=== PATIENT | male | born 1965 | race Caucasian/White ===

== ENCOUNTER 2019-09-05 09:44 | Emergency (ER) | payer SELFPAY ==
[~2019-09-05] VITALS: Ht 172.7 cm; Wt 100.0 kg
[~2019-09-05 09:44] MED LIST: AMOXICILLIN/PO500 MG PO; ROBITUSSIN AC10 ML PO
[2019-09-05 10:48] LABS: HEMATOCRIT 50.4 % (39.0-50.0); HEMOGLOBIN 16.2 g/dl (14.0-18.0); IMMATURE GRANULOCYTES 0.5 % (0.0-5.0); MEAN CELL VOLUME 98.4 fL CALC (80.0-100.0); MEAN CORPUSCULAR HGB 31.6 pG CALC (26.0-32.0); MEAN CORPUSCULAR HGB CONC 32.1 g/dL CAL (32.0-36.0); NEUT# 6.74 thou/uL (1.82-7.42); RED BLOOD COUNT 5.12 mill/uL (4.70-6.10); RED CELL DISTRI WIDTH 13.7 % (11.5-15.5)
[2019-09-05 11:15] LABS: ALBUMIN 4.4 g/dL (3.2-5.0); ALKALINE PHOSPHATASE 139 u/l (38-126); ANION GAP 10 (6-22 (CALC)); BUN 16 mg/dL (9-20); BUN/CREATININE RATIO 16 (12-20 (CALC)); C-REACTIVE PROTEIN 2.7 mg/dL (0-0.9); CARBON DIOXIDE 27 mmol/l (22-30); CHLORIDE 102 mmol/l (95-108); GFR > 60 ML/MIN (>=60 (CALC)); GFR FOR AFR.AMER. > 60 ML/MIN (>=60 (CALC)); LIPASE 59 u/l (23-300); POTASSIUM 4.3 mmol/l (3.5-5.1); SODIUM 136 mmol/l (137-146); TOTAL PROTEIN 7.4 g/dL (6.3-8.2)
[2019-09-05 11:16] LABS: BILIRUBIN, TOTAL 1.6 mg/dL (0.0-1.4); SGOT/AST 51 u/l (17-59)
[2019-09-05] MEDS ORDERED: ZPAK PO (13:25)
[2019-09-05 13:35] VITALS: BP 122/81
== END 2019-09-05 13:35 | disposition home or self-care (01) | DRG 204 ==
LOC: ED 09:44
PROVIDERS: Family Medicine
DX: R06.02 Shortness of breath (principal); R50.9 Fever, unspecified; R52 Pain, unspecified; R10.9 Unspecified abdominal pain; F17.200 Nicotine dependence, unspecified, uncomplicated; Z20.828 Contact with and (suspected) exposure to other viral communicable diseases
CPT/HCPCS: Q9967

== ENCOUNTER 2021-03-24 12:28 | Emergency (ER) | payer SELFPAY ==
[2021-03-24] VITALS (9 sets, daily range): BP systolic 108–137; BP diastolic 68–85
[~2021-03-24] VITALS: Ht 172.7 cm; Wt 101.0 kg
[~2021-03-24 12:28] MED LIST changes: +ZPAK PO
[2021-03-24 14:08] LABS: HEMATOCRIT 50.2 % (39.0-50.0); HEMOGLOBIN 16.2 g/dl (14.0-18.0); IMMATURE GRANULOCYTES 0.3 % (0.0-5.0); MEAN CELL VOLUME 99.2 fL CALC (80.0-100.0); MEAN CORPUSCULAR HGB CONC 32.3 g/dL CAL (32.0-36.0); NEUT# 5.31 thou/uL (1.82-7.42); RED BLOOD COUNT 5.06 mill/uL (4.70-6.10); RED CELL DISTRI WIDTH 13.2 % (11.5-15.5)
[2021-03-24 14:13] LABS: AMYLASE 94 u/l (30-110); ANION GAP 15 (6-22 (CALC)); BUN 9 mg/dL (9-20); BUN/CREATININE RATIO 10 (12-20 (CALC)); CARBON DIOXIDE 24 mmol/l (22-30); CHLORIDE 105 mmol/l (95-108); CREATININE 0.9 mg/dL (0.7-1.3); GFR > 60 ML/MIN (>=60 (CALC)); GFR FOR AFR.AMER. > 60 ML/MIN (>=60 (CALC)); LIPASE 132 u/l (23-300); POTASSIUM 4.1 mmol/l (3.5-5.1); SODIUM 139 mmol/l (137-146); TOTAL PROTEIN 7.8 g/dL (6.3-8.2)
[2021-03-24 14:25] LABS: MYOGLOBIN 50 ng/mL (0 - 121)
[2021-03-24 14:32] LABS: ALKALINE PHOSPHATASE 361 u/l (38-126); SGOT/AST 220 u/l (17-59)
[2021-03-24 16:23] LABS: URINE BLOOD DIPSTICK NEGATIVE (NEGATIVE); URINE GLUCOSE - DIPSTICK NEGATIVE (NEGATIVE); URINE KETONE TRACE mg/dL (NEGATIVE); URINE LEUK ESTERASE NEGATIVE (NEGATIVE); URINE PH 5.5 (4.5-8.0); URINE PROTEIN - DIPSTICK NEGATIVE (NEG-TRACE); URINE SPECIFIC GRAVITY 1.025
[2021-03-24 16:32] LABS: URINE BILIRUBIN - DIPSTICK MODERATE (NEGATIVE); URINE COLOR AMBER; URINE NITRITE - DIPSTICK NEGATIVE (Negative)
[2021-03-24] MEDS ORDERED: ZOFRAN4 MG/TAB PO (18:27)
[2021-03-24 19:43] LABS: ETHYL ALCOHOL 0 mg/dl (0-30)
== END 2021-03-24 21:00 | disposition left against medical advice (07) | DRG 948 ==
LOC: ED 12:28
PROVIDERS: Emergency Medicine
DX: R74.8 Abnormal levels of other serum enzymes (principal); K52.9 Noninfective gastroenteritis and colitis, unspecified; J44.9 Chronic obstructive pulmonary disease, unspecified; F17.210 Nicotine dependence, cigarettes, uncomplicated; Z20.822 Contact with and (suspected) exposure to COVID-19; Z91.19 Patient's noncompliance with other medical treatment and regimen
CPT/HCPCS: Q9967

== ENCOUNTER 2021-05-13 21:34 | Emergency (ER) | payer SELFPAY ==
[~2021-05-13 21:34] MED LIST changes: +ZOFRAN4 MG/TAB PO
== END 2021-05-13 23:50 | disposition left against medical advice (07) | DRG 951 ==
LOC: ED 21:34 → LWOBS 23:48
DX: Z53.21 Procedure and treatment not carried out due to patient leaving prior to being seen by health care provider (principal)

== ENCOUNTER 2021-11-08 11:56 | Emergency (ER) | payer SELFPAY ==
[~2021-11-08] VITALS: Ht 172.7 cm; Wt 84.0 kg
[2021-11-08 12:51] LABS: IMMATURE GRANULOCYTES 0.3 % (0.0-5.0); MEAN CORPUSCULAR HGB 31.4 pG CALC (26.0-32.0); NEUT# 17.45 thou/uL (1.82-7.42); RED BLOOD COUNT 4.33 mill/uL (4.70-6.10)
[2021-11-08 12:58] LABS: HEMOGLOBIN 13.6 g/dl (14.0-18.0); MEAN CELL VOLUME 92.4 fL CALC (80.0-100.0)
[2021-11-08 12:59] LABS: ALBUMIN 4.1 g/dL (3.2-5.0); ANION GAP 21 (6-22 (CALC)); BILIRUBIN, TOTAL 5.5 mg/dL (0.0-1.4); BUN 9 mg/dL (9-20); BUN/CREATININE RATIO 15 (12-20 (CALC)); CARBON DIOXIDE 21 mmol/l (22-30); CHLORIDE 99 mmol/l (95-108); CREATININE 0.6 mg/dL (0.7-1.3); GFR FOR AFR.AMER. > 60 ML/MIN (>=60 (CALC)); GFR OTHER RACES > 60 ML/MIN (>=60 (CALC)); LIPASE 135 u/l (23-300); POTASSIUM 3.7 mmol/l (3.5-5.1); SGOT/AST 204 u/l (17-59); SODIUM 137 mmol/l (137-146); TOTAL PROTEIN 7.4 g/dL (6.3-8.2)
[2021-11-08 13:15] LABS: ALKALINE PHOSPHATASE > 1500 u/l (38-126)
[2021-11-08 13:47] LABS: INTERNATIONAL NORMALIZED RATIO 1.1 RATIO (0.7-1.3); PROTHROMBIN TIME 11.1 SECONDS (9.0-12.5)
[2021-11-08 15:17] VITALS: BP 17/64
--- NOTE | 2021-11-11 15:54 | NUR ---
FINAL BLOOD CULTURE RESULTS FAXED TO [facility] [phone] - WAS UNABLE TO GET IN CONTACT WITH SOMEONE AT THE NURSES STATION, THIS IS SAME NUMBER WE FAXED PRELIM RESULTS TO YESTERDAY
== END 2021-11-08 15:40 | disposition short-term general hospital (02) | DRG 443 ==
LOC: ED 11:56
PROVIDERS: Family Medicine
DX: E80.6 Other disorders of bilirubin metabolism (principal); K83.8 Other specified diseases of biliary tract; E11.9 Type 2 diabetes mellitus without complications; J44.9 Chronic obstructive pulmonary disease, unspecified; F17.200 Nicotine dependence, unspecified, uncomplicated; Z96.89 Presence of other specified functional implants
CPT/HCPCS: Q9967

== ENCOUNTER 2022-03-23 15:32 | Emergency (ER) | payer SELFPAY ==
[~2022-03-23] VITALS: Ht 172.7 cm; Wt 68.0 kg
[2022-03-23] VITALS (37 sets, daily range): BP systolic 82–136; BP diastolic 54–76
[2022-03-23] MEDS ORDERED: METFORMIN HCL500 M1 PO (16:11)
[2022-03-23] MEDS ORDERED: DICYCLOMINE HCL20 MG PO (16:12)
[2022-03-23] MEDS ORDERED: PROVENTIL0.083 % IN (16:13)
[2022-03-23] MEDS ORDERED: OMEPRAZOLE20 M4 (16:13)
[2022-03-23] MEDS ORDERED: SUCRALFATE1 GM PO (16:14)
[2022-03-23 16:30] LABS: BASO% 0.1 % (0-3); EOS% 0.4 % (0-8); HEMATOCRIT 38.5 % (39.0-50.0); HEMOGLOBIN 12.7 g/dl (14.0-18.0); IMMATURE GRANULOCYTES 0.4 % (0.0-5.0); MEAN CELL VOLUME 91.9 fL CALC (80.0-100.0); MEAN CORPUSCULAR HGB 30.3 pG CALC (26.0-32.0); MONO% 10.4 % (2-13); NEUT# 11.39 thou/uL (1.82-7.42); NEUT% 80.7 % (42-76); RED BLOOD COUNT 4.19 mill/uL (4.70-6.10); RED CELL DISTRI WIDTH 13.3 % (11.5-15.5)
[2022-03-23 16:37] LABS: ALBUMIN 3.7 g/dL (3.2-5.0); ANION GAP 12 (6-22 (CALC)); BUN 9 mg/dL (9-20); BUN/CREATININE RATIO 16 (12-20 (CALC)); CARBON DIOXIDE 23 mmol/l (22-30); CHLORIDE 102 mmol/l (95-108); CREATININE 0.6 mg/dL (0.7-1.3); GFR FOR AFR.AMER. > 60 ML/MIN (>=60 (CALC)); GFR OTHER RACES > 60 ML/MIN (>=60 (CALC)); LIPASE 96 u/l (23-300); SGOT/AST 87 u/l (17-59); SODIUM 134 mmol/l (137-146); TOTAL PROTEIN 7.5 g/dL (6.3-8.2)
[2022-03-23 16:44] LABS: ALKALINE PHOSPHATASE 1387 u/l (38-126); BILIRUBIN, TOTAL 10.6 mg/dL (0.2-1.3)
[2022-03-23 21:49] LABS: URINE BLOOD DIPSTICK NEGATIVE (NEGATIVE); URINE COLOR BROWN; URINE GLUCOSE - DIPSTICK 100 mg/dL (NEGATIVE); URINE KETONE TRACE mg/dL (NEGATIVE); URINE LEUK ESTERASE NEGATIVE (NEGATIVE); URINE PH 6.5 (4.5-8.0); URINE PROTEIN - DIPSTICK 30 mg/dL (NEG-TRACE); URINE SPECIFIC GRAVITY 1.015
[2022-03-23 21:50] LABS: URINE BILIRUBIN - DIPSTICK LARGE (NEGATIVE); URINE NITRITE - DIPSTICK NEGATIVE (Negative)
[2022-03-23 21:54] LABS: URINE RBC 0-2 RBC/hpf (0-5); URINE WBC 0-2 WBC/hpf (0-5)
== END 2022-03-23 23:39 | disposition short-term general hospital (02) | DRG 445 ==
LOC: ED 15:32
PROVIDERS: Family Medicine
DX: K83.09 Other cholangitis (principal); K81.0 Acute cholecystitis; J44.9 Chronic obstructive pulmonary disease, unspecified; Z72.0 Tobacco use; E11.9 Type 2 diabetes mellitus without complications
CPT/HCPCS: Q9967

== ENCOUNTER 2022-07-16 13:14 | Emergency (ER) | payer OTHER ==
[~2022-07-16] VITALS: Ht 172.7 cm; Wt 74.8 kg
[2022-07-16] VITALS (7 sets, daily range): BP systolic 92–113; BP diastolic 58–78
[~2022-07-16 13:14] MED LIST changes: +DICYCLOMINE HCL20 MG PO; +METFORMIN HCL500 M1 PO; +OMEPRAZOLE20 M4; +PROVENTIL0.083 % IN; +SUCRALFATE1 GM PO
[2022-07-16 14:59] LABS: BASO% 0.3 % (0-3); EOS% 2.9 % (0-8); HEMATOCRIT 36.9 % (39.0-50.0); HEMOGLOBIN 11.8 g/dl (14.0-18.0); IMMATURE GRANULOCYTES 0.1 % (0.0-5.0); LYMPH% 27.9 % (15-41); MEAN CELL VOLUME 93.4 fL CALC (80.0-100.0); MEAN CORPUSCULAR HGB 29.9 pG CALC (26.0-32.0); MONO% 6.3 % (2-13); NEUT# 6.35 thou/uL (1.82-7.42); NEUT% 62.5 % (42-76); RED BLOOD COUNT 3.95 mill/uL (4.70-6.10); RED CELL DISTRI WIDTH 13.6 % (11.5-15.5)
[2022-07-16 15:15] LABS: ACT PARTIAL THROMBO TIME 25.7 SECONDS (20.0-32.5); INTERNATIONAL NORMALIZED RATIO 0.9 RATIO (0.7-1.3); PROTHROMBIN TIME 9.4 SECONDS (9.0-12.5)
[2022-07-16 15:19] LABS: ALBUMIN 3.7 g/dL (3.2-5.0); ANION GAP 13 (6-22 (CALC)); BUN 16 mg/dL (9-20); BUN/CREATININE RATIO 23 (12-20 (CALC)); CARBON DIOXIDE 26 mmol/l (22-30); CHLORIDE 98 mmol/l (95-108); CREATININE 0.7 mg/dL (0.7-1.3); GFR FOR AFR.AMER. > 60 ML/MIN (>=60 (CALC)); GFR OTHER RACES > 60 ML/MIN (>=60 (CALC)); POTASSIUM 3.6 mmol/l (3.5-5.1); SGOT/AST 26 u/l (17-59); SODIUM 134 mmol/l (137-146); TOTAL PROTEIN 6.6 g/dL (6.3-8.2)
[2022-07-16 15:22] LABS: ALKALINE PHOSPHATASE 241 u/l (38-126); BILIRUBIN, TOTAL 0.2 mg/dL (0.2-1.3)
[2022-07-16] MEDS ORDERED: PERCOCET 10/31 COMBO PO (15:25)
[2022-07-16] MEDS ORDERED: FOLIC ACID1 MG PO (15:26)
[2022-07-16] MEDS ORDERED: CREON12000 UNT PO (15:26)
[2022-07-16 15:27] LABS: AMYLASE 63 u/l (30-110); LIPASE 23 u/l (23-300)
[2022-07-16] MEDS ORDERED: PHENERGAN25 MG RE (15:27)
[2022-07-16 16:53] LABS: URINE BILIRUBIN - DIPSTICK NEGATIVE (NEGATIVE); URINE BLOOD DIPSTICK NEGATIVE (NEGATIVE); URINE COLOR YELLOW; URINE GLUCOSE - DIPSTICK >=1000 mg/dL (NEGATIVE); URINE KETONE NEGATIVE (NEGATIVE); URINE LEUK ESTERASE NEGATIVE (NEGATIVE); URINE PROTEIN - DIPSTICK NEGATIVE (NEG-TRACE); URINE UROBILINOGEN - DIPSTICK 0.2 E.U./dL (0.2)
[2022-07-16 16:54] LABS: URINE NITRITE - DIPSTICK NEGATIVE (Negative)
== END 2022-07-16 18:20 | disposition short-term general hospital (02) ==
LOC: ED 13:14
PROVIDERS: Family Medicine
DX: T85.590A Other mechanical complication of bile duct prosthesis, initial encounter (principal); A41.9 Sepsis, unspecified organism; J44.9 Chronic obstructive pulmonary disease, unspecified; C25.9 Malignant neoplasm of pancreas, unspecified; F17.200 Nicotine dependence, unspecified, uncomplicated; Y83.1 Surgical operation with implant of artificial internal device as the cause of abnormal reaction of the patient, or of later complication, without mention of misadventure at the time of the procedure; Z96.89 Presence of other specified functional implants
CPT/HCPCS: Q9967

== ENCOUNTER 2022-12-16 18:18 | Emergency (ER) | payer OTHER ==
[~2022-12-16] VITALS: Ht 172.7 cm; Wt 47.6 kg
[2022-12-16] VITALS (47 sets, daily range): BP systolic 54–142; BP diastolic 32–76
[~2022-12-16 18:18] MED LIST changes: +CREON12000 UNT PO; +FOLIC ACID1 MG PO; +PERCOCET 10/31 COMBO PO; +PHENERGAN25 MG RE
[2022-12-16 19:12] LABS: BASO% 0.6 % (0-3); EOS% 7.3 % (0-8); IMMATURE GRANULOCYTES 0.4 % (0.0-5.0); LYMPH% 24.6 % (15-41); MEAN CELL VOLUME 94.8 fL CALC (80.0-100.0); MEAN CORPUSCULAR HGB 30.5 pG CALC (26.0-32.0); MEAN CORPUSCULAR HGB CONC 32.2 g/dL CAL (32.0-36.0); MONO% 8.3 % (2-13); NEUT# 5.6 thou/uL (1.82-7.42); NEUT% 58.8 % (42-76); RED BLOOD COUNT 3.08 mill/uL (4.70-6.10); RED CELL DISTRI WIDTH 13.3 % (11.5-15.5)
[2022-12-16 19:20] LABS: HEMATOCRIT 29.2 % (39.0-50.0); HEMOGLOBIN 9.4 g/dl (14.0-18.0)
[2022-12-16 19:28] LABS: ALKALINE PHOSPHATASE 184 u/l (38-126); ANION GAP 9 (6-22 (CALC)); BUN 8 mg/dL (9-20); BUN/CREATININE RATIO 11 (12-20 (CALC)); CARBON DIOXIDE 22 mmol/l (22-30); CHLORIDE 108 mmol/l (95-108); CREATININE 0.8 mg/dL (0.7-1.3); GFR FOR AFR.AMER. > 60 ML/MIN (>=60 (CALC)); GFR OTHER RACES > 60 ML/MIN (>=60 (CALC)); LIPASE < 10 u/l (23-300); POTASSIUM 4.1 mmol/l (3.5-5.1); SGOT/AST 25 u/l (17-59); SODIUM 136 mmol/l (137-146)
[2022-12-16 19:29] LABS: ALBUMIN 2.2 g/dL (3.2-5.0); BILIRUBIN, TOTAL 0.4 mg/dL (0.2-1.3); TOTAL PROTEIN 4.8 g/dL (6.3-8.2)
[2022-12-16 20:07] LABS: INTERNATIONAL NORMALIZED RATIO 1.1 RATIO (0.7-1.3); PROTHROMBIN TIME 10.2 SECONDS (9.0-12.5)
== END 2022-12-16 21:33 | disposition short-term general hospital (02) ==
LOC: ED 18:18
PROVIDERS: Family Medicine; Nurse Practitioner
DX: K92.0 Hematemesis (principal); K62.5 Hemorrhage of anus and rectum; I95.9 Hypotension, unspecified; J44.9 Chronic obstructive pulmonary disease, unspecified; F17.200 Nicotine dependence, unspecified, uncomplicated; Z95.828 Presence of other vascular implants and grafts; Z66 Do not resuscitate; Z85.07 Personal history of malignant neoplasm of pancreas
CPT/HCPCS: J2354; P9016